=== PATIENT | male | born 1975 | race Caucasian/White ===

== ENCOUNTER 2016-08-28 22:21 | Observation (INO) | payer OTHER ==
[2016-08-28] MEDS ORDERED: NITROGLYCERIN OINT 1 INCH/GM PACKET TOPICAL STA (22:38)
[2016-08-28] MEDS ORDERED: ASPIRIN 81 MG PO STA (22:38)
--- NOTE | 2016-08-28 22:41 | ED ---
General Adult HPI - General Chief complaint: Chest Pain Stated complaint: Chest Pain Time Seen by Provider: 08/28/16 22:32 Source: patient, family, RN notes reviewed Mode of arrival: ambulatory Limitations: no limitations - History of Present Illness Initial comments: Patient is a pleasant 41-year-old male presenting to the emergency department complaining of chest discomfort. Patient has had difficulty with throat problems over the past several weeks. Patient has been on antibiotics 2 or 3 times. Patient has had some cough for the past few days. Today and yesterday patient has had discomfort in his chest. Discomfort is described as tightness without radiation. Patient is questionable if there may be some shortness of breath. No nausea. Patient has been somewhat sweaty however attributes this with her warmth outside. Patient is unclear if he has had fevers or not. No history of similar chest discomfort previously. - Related Data Home Medications Medication Instructions Recorded Confirmed Albuterol Inhaler [Ventolin Hfa 1 - 2 puff INHALATION RT-QID PRN 08/28/16 Inhaler] Omeprazole [PriLOSEC] 20 mg PO AC-BRKFST 08/28/16 08/28/16 Allergies Allergy/AdvReac Type Severity Reaction Status Date / Time No Known Allergies Allergy Verified 08/28/16 23:09 Review of Systems ROS Statement: Those systems with pertinent positive or pertinent negative responses have been documented in the HPI. ROS Other: All systems not noted in ROS Statement are negative. Constitutional: Denies: weight change Eyes: Denies: eye pain ENT: Reports: throat pain Respiratory: Reports: cough Cardiovascular: Reports: chest pain Endocrine: Denies: fatigue Gastrointestinal: Denies: abdominal pain Genitourinary: Denies: dysuria Musculoskeletal: Denies: back pain Skin: Denies: rash Neurological: Denies: headache Past Medical History Past Medical History: No Reported History Additional Past Medical History / Comment(s): pneumonia History of Any Multi-Drug Resistant Organisms: None Reported Past Surgical History: No Surgical Hx Reported Past Psychological History: No Psychological Hx Reported Smoking Status: Former smoker Past Alcohol Use History: None Reported Past Drug Use History: None Reported General Exam Limitations: no limitations General appearance: alert, in no apparent distress Head exam: Present: atraumatic Eye exam: Present: normal appearance, PERRL ENT exam: Present: normal oropharynx Neck exam: Present: normal inspection Respiratory exam: Present: normal lung sounds bilaterally Cardiovascular Exam: Present: regular rate, normal rhythm Expanded Peripheral pulses: 2+: Radial (R), Radial (L), Dorsalis Pedis (R), Dorsalis Pedis (L) GI/Abdominal exam: Present: soft. Absent: tenderness Extremities exam: Present: normal inspection. Absent: pedal edema, calf tenderness Back exam: Present: normal inspection Neurological exam: Present: alert Psychiatric exam: Present: normal affect, normal mood Skin exam: Present: normal color Course Vital Signs 08/28/16 08/28/16 22:22 23:25 Temperature 98.4 F Pulse Rate 78 79 Respiratory 18 18 Rate Blood Pressure 123/84 112/68 O2 Sat by Pulse 99 96 Oximetry EKG Findings - EKG Comments: EKG Findings:: Normal sinus rhythm 79. Normal intervals. Normal axis. Normal QRS. No acute ST change. Medical Decision Making - Medical Decision Making Patient reevaluated and improved. Patient symptom-free at this time following Nitropaste. Patient family updated on results and plan. Case discussed in detail with Dr. Martin, who will admit for Dr. Wang. - Lab Data Result diagrams: 08/28/16 22:30 08/28/16 22:30 Lab Results 08/28/16 08/28/16 08/28/16 Range/Units 22:30 22:30 22:30 WBC 10.9 H (3.8-10.6) k/uL RBC 5.28 (4.30-5.90) m/uL Hgb 15.2 (13.0-17.5) gm/dL Hct 43.7 (39.0-53.0) % MCV 82.7 (80.0-100.0) fL MCH 28.8 (25.0-35.0) pg MCHC 34.8 (31.0-37.0) g/dL RDW 14.0 (11.5-15.5) % Plt Count 361 (150-450) k/uL Neutrophils % 66 % Lymphocytes % 23 % Monocytes % 6 % Eosinophils % 3 % Basophils % 1 % Neutrophils # 7.2 (1.3-7.7) k/uL Lymphocytes # 2.5 (1.0-4.8) k/uL Monocytes # 0.6 (0-1.0) k/uL Eosinophils # 0.4 (0-0.7) k/uL Basophils # 0.1 (0-0.2) k/uL PT (9.0-12.0) sec INR (<1.2) APTT (22.0-30.0) sec D-Dimer (<0.60) mg/L FEU Sodium 141 (137-145) mmol/L Potassium 3.9 (3.5-5.1) mmol/L Chloride 104 (98-107) mmol/L Carbon Dioxide 24 (22-30) mmol/L Anion Gap 13 mmol/L BUN 13 (9-20) mg/dL Creatinine 0.82 (0.66-1.25) mg/dL Est GFR (MDRD) Af Amer >60 (>60 ml/min/1.73 sqM) Est GFR (MDRD) Non-Af >60 (>60 ml/min/1.73 sqM) Glucose 81 (74-99) mg/dL Calcium 9.3 (8.4-10.2) mg/dL Magnesium 2.2 (1.6-2.3) mg/dL Total Bilirubin 0.4 (0.2-1.3) mg/dL AST 51 (17-59) U/L ALT 139 H (21-72) U/L Alkaline Phosphatase 100 (38-126) U/L Total Creatine Kinase 73 (55-170) U/L CK-MB (CK-2) 0.6 (0.0-2.4) ng/mL CK-MB (CK-2) Rel Index 0.8 Troponin I <0.012 (0.000-0.034) ng/mL Total Protein 7.8 (6.3-8.2) g/dL Albumin 4.6 (3.5-5.0) g/dL 08/28/16 Range/Units 22:30 WBC (3.8-10.6) k/uL RBC (4.30-5.90) m/uL Hgb (13.0-17.5) gm/dL Hct (39.0-53.0) % MCV (80.0-100.0) fL MCH (25.0-35.0) pg MCHC (31.0-37.0) g/dL RDW (11.5-15.5) % Plt Count (150-450) k/uL Neutrophils % % Lymphocytes % % Monocytes % % Eosinophils % % Basophils % % Neutrophils # (1.3-7.7) k/uL Lymphocytes # (1.0-4.8) k/uL Monocytes # (0-1.0) k/uL Eosinophils # (0-0.7) k/uL Basophils # (0-0.2) k/uL PT 10.5 (9.0-12.0) sec INR 1.0 (<1.2) APTT 24.5 (22.0-30.0) sec D-Dimer 0.31 (<0.60) mg/L FEU Sodium (137-145) mmol/L Potassium (3.5-5.1) mmol/L Chloride (98-107) mmol/L Carbon Dioxide (22-30) mmol/L Anion Gap mmol/L BUN (9-20) mg/dL Creatinine (0.66-1.25) mg/dL Est GFR (MDRD) Af Amer (>60 ml/min/1.73 sqM) Est GFR (MDRD) Non-Af (>60 ml/min/1.73 sqM) Glucose (74-99) mg/dL Calcium (8.4-10.2) mg/dL Magnesium (1.6-2.3) mg/dL Total Bilirubin (0.2-1.3) mg/dL AST (17-59) U/L ALT (21-72) U/L Alkaline Phosphatase (38-126) U/L Total Creatine Kinase (55-170) U/L CK-MB (CK-2) (0.0-2.4) ng/mL CK-MB (CK-2) Rel Index Troponin I (0.000-0.034) ng/mL Total Protein (6.3-8.2) g/dL Albumin (3.5-5.0) g/dL - Radiology Data Radiology results: image reviewed (Chest x-ray shows no acute process) Critical Care Time Critical Care Time: Yes Total Critical Care Time: 31 Disposition Clinical Impression: Unstable angina pectoris Disposition: ADMITTED IP TO THIS [facility] Referrals: Arely Wang MD [Primary Care Provider] - 1-2 days Decision Time: 23:30
[2016-08-28 22:47] LABS: Basophils # (A) 0.1 k/uL (0-0.2); Basophils % (A) 1 %; CH 27.6; CHCM 33.6; Eosinophils # (A) 0.4 k/uL (0-0.7); Eosinophils % (A) 3 %; HCT 43.7 % (39.0-53.0); HDW 2.71; HGB 15.2 gm/dL (13.0-17.5); Luc # (Auto) 0.22; Luc % (Auto) 2; Lymphocytes # (A) 2.5 k/uL (1.0-4.8); Lymphocytes % (A) 23 %; MCH 28.8 pg (25.0-35.0); MCHC 34.8 g/dL (31.0-37.0); MCV 82.7 fL (80.0-100.0); Monocytes # (A) 0.6 k/uL (0-1.0); Monocytes % (A) 6 %; Neutrophils # (A) 7.2 k/uL (1.3-7.7); Neutrophils % (A) 66 %; RBC 5.28 m/uL (4.30-5.90); WBC 10.9 k/uL (3.8-10.6); WBC (Perox) 10.81
[2016-08-28 22:56] LABS: ALT 139 U/L (21-72); AST 51 U/L (17-59); Alkaline Phosphatase 100 U/L (38-126); Anion Gap 13 mmol/L; Blood Urea Nitrogen 13 mg/dL (9-20); Calcium 9.3 mg/dL (8.4-10.2); Carbon Dioxide 24 mmol/L (22-30); Chloride 104 mmol/L (98-107); Glucose 81 mg/dL (74-99); Magnesium 2.2 mg/dL (1.6-2.3); Non-African American GFR(MDRD) >60 (>60 ml/min/1.73 sqM); Potassium 3.9 mmol/L (3.5-5.1); Sodium 141 mmol/L (137-145); Total Bilirubin 0.4 mg/dL (0.2-1.3); Total Protein 7.8 g/dL (6.3-8.2)
[2016-08-28 23:02] LABS: Partial Thromboplastin Time 24.5 sec (22.0-30.0); Prothrombin Time 10.5 sec (9.0-12.0)
[2016-08-28 23:06] LABS: Creatine Kinase 73 U/L (55-170)
--- NOTE | 2016-08-28 23:10 | XR ---
EXAM: XR Chest, 2 Views CLINICAL HISTORY: Reason: Chest Pain TECHNIQUE: Frontal and lateral views of the chest. COMPARISON: None FINDINGS: Lungs: Unremarkable. No consolidation. Pleural space: Unremarkable. No pneumothorax. Heart: Unremarkable. No cardiomegaly. Mediastinum: Unremarkable. Bones/joints: No acute osseous abnormality. IMPRESSION: No acute cardiopulmonary process.
[2016-08-28 23:20] LABS: Creatine Kinase MB 0.6 ng/mL (0.0-2.4); Troponin I <0.012 ng/mL (0.000-0.034)
[2016-08-28] MEDS ORDERED: NITROGLYCERIN SL TABS 0.4 MG TAB SUBLINGUAL PRN (23:31)
[2016-08-28] MEDS ORDERED: HEPARIN SODIUM,PORCINE 5,000 UNIT/ML 1 ML VIAL IV PRN (23:31)
[2016-08-28] MEDS ORDERED: HEPARIN SODIUM,PORCINE 5,000 UNIT/ML 1 ML VIAL IV ONE (23:31)
[2016-08-28] MEDS ORDERED: HEPARIN SODIUM,PORCINE/D5W PMX 25,000 UNIT in DEXTROSE/WATER 1 500ML.BAG IV SCH (23:45)
[2016-08-29 00:31] VITALS: BMI 34.0
[2016-08-29] MEDS: NITROGLYCERIN OINT 1 INCH/GM PACKET TOPICAL SCH ×3 (00:47→13:52)
[2016-08-29 05:46] LABS: Mean Platelet Volume 7.3
[2016-08-29 05:55] LABS: Cholesterol 197 mg/dL (<200); HDL Cholesterol 44 mg/dL (40-60)
[2016-08-29 06:04] LABS: Creatine Kinase 58 U/L (55-170)
[2016-08-29 06:17] LABS: Creatine Kinase MB 0.5 ng/mL (0.0-2.4); Troponin I <0.012 ng/mL (0.000-0.034)
[2016-08-29 08:10] VITALS: RESP 16
[2016-08-29] MEDS ORDERED: ACETAMINOPHEN TAB 325 MG TAB PO PRN (08:22)
[2016-08-29] MEDS ORDERED: ASPIRIN 325 MG TAB PO SCH (09:00)
--- NOTE | 2016-08-29 11:25 | CONS ---
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 The quality of his discomfort seems very atypical, occurring in short of a random fashion. [place] and then started feeling some uncomfortable sensation in the chest and also had some shortness of breath as well. About two weeks ago, he had some URI type symptoms, had a prolonged infection, took antibiotics and steroids. He had similar symptoms but in addition, he also had some chest tightness, tingling feeling in his arm and then came into the hospital. Two sets of troponins are normal. He is resting comfortable. Pain seems atypical. He does not have any other major risk factors. ( ). MTDD
--- NOTE | 2016-08-29 11:58 | ECHOF ---
Referral Reason:cp MEASUREMENTS -------- HEIGHT: 177.8 cm WEIGHT: 124.3 kg BP: 154/42 WallScoring: string WallScoring: string WallScoring: string FINDINGS -------- Utilizing the standard Randall protocol the patient was exercised for 10 minutes, 0 seconds, achieving a maximum heart rate of 155 , which is 87 % of predicted maximal heart rate. There was physiologic heart rate and blood pressure response to exercise. Max Heart Rate: 155 % of Max Predicted Heart Rate: 87 Rest Heart Rate: 73 Rest BP: 154/42 Max BP: 196/61 Mets Achieved: 11.7 The test was stopped because of fatigue. This level of exercise represents an average exercise tolerance for age. Sinus rhythm. In response to stress, the ECG showed no ST-T wave changes (see exercise report for details). In response to stress, the ECG showed no ST-T wave changes (see exercise report for details). There were normal blood pressure and heart rate responses to stress. LV size, wall thickness and systolic function are normal, with an EF of 60%. Echo images were acquired at peak stress which demonstrated appropriate augmentation of all left ventricular segments with slight decrease in cavity size. CONCLUSIONS -------- 1. The test was stopped because of fatigue. 2. This level of exercise represents an average exercise tolerance for age. 3. In response to stress, the ECG showed no ST-T wave changes (see exercise report for details). 4. No 2D echocardiographic evidence of inducible ischemia to achieved workload. COMMUNITY ENGAGEMENT REPRESENTATIVE: Eda Garcia RDCS
--- NOTE | 2016-08-29 12:01 | ECHOF ---
Referral Reason:cp MEASUREMENTS -------- HEIGHT: 177.8 cm WEIGHT: 127.0 kg BP: 154/42 RVIDd: 3.0 cm (< 3.3) IVSd: 1.1 cm (0.6 - 1.1) LVIDd: 4.4 cm (3.9 - 5.3) LVPWd: 1.2 cm (0.6 - 1.1) IVSs: 1.7 cm LVIDs: 3.1 cm LVPWs: 1.7 cm LA Diam: 3.6 cm (2.7 - 3.8) LAESV Index (A-L): 17.69 ml/m Ao Diam: 3.8 cm (2.0 - 3.7) AV Cusp: 2.7 cm (1.5 - 2.6) MV EXCURSION: 16.312 mm (> 18.000) MV EF SLOPE: 48 mm/s (70 - 150) EPSS: 0.3 cm MV E Mk: 0.80 m/s MV DecT: 239 ms MV A Mk: 0.61 m/s MV E/A Ratio: 1.31 FINDINGS -------- Sinus rhythm. This was a technically good study. The left ventricular size is normal. There is borderline concentric left ventricular hypertrophy. Overall left ventricular systolic function is normal with, an EF between 55 - 60 %. The right ventricle is normal in size. Normal LA size by volume 22+/-6 ml/m2. The right atrium is normal in size. The aortic valve is trileaflet and appears structurally normal. The mitral valve is normal. The tricuspid valve appears structurally normal. Trace/mild (physiologic) pulmonic regurgitation. The aortic root is mildy dilated. Normal inferior vena cava with normal inspiratory collapse consistent with estimated right atrial pressure of 5 mmHg. There is no pericardial effusion. CONCLUSIONS -------- 1. Sinus rhythm. 2. The aortic root is mildy dilated. 3. There is no pericardial effusion. 4. This was a technically good study. 5. There is borderline concentric left ventricular hypertrophy. 6. Overall left ventricular systolic function is normal with, an EF between 55 - 60 %. 7. Normal LA size by volume 22+/-6 ml/m2. 8. The aortic valve is trileaflet and appears structurally normal. 9. The mitral valve is normal. 10. The tricuspid valve appears structurally normal. 11. Trace/mild (physiologic) pulmonic regurgitation. SAFETY AND SECURITY MANAGER: Eda Garcia RDCS
[2016-08-29 12:22] LABS: Creatine Kinase 59 U/L (55-170)
[2016-08-29 12:29] VITALS: BP 133/85; PULSE 87; TEMP 98.4
[2016-08-29 12:34] LABS: Creatine Kinase MB 0.5 ng/mL (0.0-2.4); Troponin I <0.012 ng/mL (0.000-0.034)
--- NOTE | 2016-08-29 13:29 | P.DS ---
Providers Date of admission: 08/28/16 23:31 Attending physician: Linda Martin Consults: 08/28/16 23:31 Consult Physician Urgent Consulting Provider: Arley Roberson Consult Reason/Comments: ua Do you want consulting provider notified?: Yes Primary care physician: Arely Wang Hospital Course: Refer to [facility] Plan - Discharge Summary New Discharge Prescriptions: No Action Omeprazole [PriLOSEC] 20 mg PO AC-BRKFST Albuterol Inhaler [Ventolin Hfa Inhaler] 1 - 2 puff INHALATION RT-QID PRN PRN Reason: Shortness Of Breath Discharge Medication List Albuterol Inhaler [Ventolin Hfa Inhaler] 1 - 2 puff INHALATION RT-QID PRN [History] Omeprazole [PriLOSEC] 20 mg PO AC-BRKFST 08/28/16 [History] Follow up Appointment(s)/Referral(s): Arely Wang MD [Primary Care Provider] - 3 Days Discharge Disposition: HOME SELF-CARE
--- NOTE | 2016-08-29 13:29 | P.HPIM ---
History of Present Illness Patient is a pleasant 41-year-old male presenting to the emergency department complaining of chest discomfort episodic, retrosternal, non radiating, non pleuritic not associated with food, moderate, denied cough. Patient has been on antibiotics 2 or 3 times. Today and yesterday patient has had discomfort in his chest. Discomfort is described as tightness without radiation. Patient is questionable if there may be some shortness of breath. No nausea. Patient has been somewhat sweaty however attributes this with her warmth outside. Patient is unclear if he has had fevers or not. No history of similar chest discomfort previously. Patient had stress test which was negative. Chest pain completely resolved now. Review of Systems REVIEW OF SYSTEMS: CONSTITUTIONAL: No fever, no malaise, no fatigue. HEENT: No recent visual problems or hearing problems. Denied any sore throat. CARDIOVASCULAR: No orthopnea, PND, no palpitations, no syncope. PULMONARY: No shortness of breath, no cough, no hemoptysis. GASTROINTESTINAL: No diarrhea, no nausea, no vomiting, no abdominal pain. Normoactive bowel sounds. NEUROLOGICAL: No headaches, no weakness, no numbness. HEMATOLOGICAL: Denies any bleeding or petechiae. GENITOURINARY: Denies any burning micturition, frequency, or urgency. MUSCULOSKELETAL/RHEUMATOLOGICAL: Denies any joint pain, swelling, or any muscle pain. ENDOCRINE: Denies any polyuria or polydipsia. The rest of the 14-point review of systems is negative. Past Medical History Past Medical History: No Reported History, GERD/Reflux, Hyperlipidemia, Osteoarthritis (OA), Sleep Apnea/CPAP/BIPAP Additional Past Medical History / Comment(s): pneumonia, sleep apnea-cpap History of Any Multi-Drug Resistant Organisms: None Reported Past Surgical History: No Surgical Hx Reported Additional Past Surgical History / Comment(s): Broken jaw-4 [place] accident, vasectomy Past Anesthesia/Blood Transfusion Reactions: No Reported Reaction, Motion Sickness Past Psychological History: No Psychological Hx Reported Smoking Status: Former smoker Past Alcohol Use History: None Reported Past Drug Use History: None Reported - Past Family History Father Family Medical History: Osteoarthritis (OA) Mother Family Medical History: Cancer, Thyroid Disorder Additional Family Medical History / Comment(s): thyroid CA-removed Sister(s) Family Medical History: Diabetes Mellitus Additional Family Medical History / Comment(s): Borderline DM Medications and Allergies Home Medications Medication Instructions Recorded Confirmed Type Albuterol Inhaler [Ventolin Hfa 1 - 2 puff INHALATION RT-QID PRN 08/28/16 History Inhaler] Omeprazole [PriLOSEC] 20 mg PO AC-BRKFST 08/28/16 08/29/16 History Allergies Allergy/AdvReac Type Severity Reaction Status Date / Time No Known Allergies Allergy Verified 08/29/16 00:33 Physical Exam Vitals: Vital Signs Temp Pulse Pulse Pulse Resp BP BP 08/29/16 12:00 98.4 F 87 16 133/85 08/29/16 08:00 97.9 F 74 16 116/78 08/29/16 04:00 97.9 F 60 18 103/58 08/29/16 00:00 97.7 F 71 18 108/68 08/28/16 23:25 79 18 112/68 08/28/16 22:22 98.4 F 78 18 123/84 Pulse Ox 08/29/16 12:00 95 08/29/16 08:00 96 08/29/16 04:00 97 08/29/16 00:00 99 08/28/16 23:25 96 08/28/16 22:22 99 Intake and Output 08/28/16 08/29/16 08/29/16 22:59 06:59 14:59 Intake Total 290 Balance 290 Intake: IV 30 0.9 @ 10ml/hr 30 Intake, IV Titration 160 Amount Heparin Sodium,Porcine/ 160 D5w Pmx 25,000 unit In Dextrose/Water 1 500ml. bag @ 7.9 UNITS/KG/HR 20. 06 mls/hr IV .Q24H [facility] Rx #:[id number] Oral 100 Other: Voiding Method Toilet Toilet # Voids 2 Weight 127.006 kg 124.6 kg PHYSICAL EXAMINATION: GENERAL: The patient is alert and oriented x3, not in any acute distress. Well developed, well nourished. HEENT: Pupils are round and equally reacting to light. EOMI. No scleral icterus. No conjunctival pallor. Normocephalic, atraumatic. No pharyngeal erythema. No thyromegaly. CARDIOVASCULAR: S1 and S2 present. No murmurs, rubs, or gallops. PULMONARY: Chest is clear to auscultation, no wheezing or crackles. ABDOMEN: Soft, nontender, nondistended, normoactive bowel sounds. No palpable organomegaly. MUSCULOSKELETAL: No joint swelling or deformity. EXTREMITIES: No cyanosis, clubbing, or pedal edema. NEUROLOGICAL: Gross neurological examination did not reveal any focal deficits. SKIN: No rashes. Results CBC & Chem 7: 08/29/16 05:26 08/28/16 22:30 Labs: Abnormal Lab Results - Last 24 Hours (Table) 08/28/16 08/28/16 08/29/16 Range/Units 22:30 22:30 05:26 WBC 10.9 H (3.8-10.6) k/uL ALT 139 H (21-72) U/L Triglycerides 293 H (<150) mg/dL Thrombosis Risk Factor Assmnt - Choose All That Apply Each Factor Represents 1 point: Age 41-60 years Thrombosis Risk Factor Assessment Total Risk Factor Score: 1 Thrombosis Risk Factor Assessment Level: Low Risk Assessment and Plan Plan: #1 chest pain: Patient was admitted to rule out unstable angina and acute myocardial infarction. Patient underwent stress test which was negative patient has pain is probably musculoskeletal patient will be discharged today in follow-up with Dr. Arely Wang as an outpatient. #2 gastroesophageal reflux disease: Patient will continue his omeprazole #3 patient appears to have had history of COPD for which he uses albuterol which she can continue. I do not believe patient has bronchitis #4 obesity: Counseling was provided
--- NOTE | 2016-08-29 15:24 | EST ---
Referral Reason:cp MEASUREMENTS -------- HEIGHT: 177.8 cm WEIGHT: 124.3 kg BP: 154/42 FINDINGS -------- Utilizing the standard Randall protocol the patient was exercised for 10 minutes, 0 seconds, achieving a maximum heart rate of 155 , which is 87 % of predicted maximal heart rate. There was physiologic heart rate and blood pressure response to exercise. Max Heart Rate: 155 % of Max Predicted Heart Rate: 87 Rest Heart Rate: 73 Rest BP: 154/42 Max BP: 196/61 Mets Achieved: 11.7 The test was stopped because of fatigue. This level of exercise represents an average exercise tolerance for age. Sinus rhythm. In response to stress, the ECG showed no ST-T wave changes (see exercise report for details). In response to stress, the ECG showed no ST-T wave changes (see exercise report for details). There were normal blood pressure and heart rate responses to stress. LV size, wall thickness and systolic function are normal, with an EF of 60%. Echo images were acquired at peak stress which demonstrated appropriate augmentation of all left ventricular segments with slight decrease in cavity size. CONCLUSIONS -------- 1. The test was stopped because of fatigue. 2. This level of exercise represents an average exercise tolerance for age. 3. In response to stress, the ECG showed no ST-T wave changes (see exercise report for details). 4. No 2D echocardiographic evidence of inducible ischemia to achieved workload. ASSISTANT PROSECUTING ATTORNEY: Eda Garcia SHERRY MTDD
== END 2016-08-29 13:50 | disposition home or self-care (01) ==
LOC: EC 22:21 → 3OBS 23:31
PROVIDERS: ADMIT Internal Medicine; ATTEND Internal Medicine
DX: R07.89 Other chest pain (principal); R20.2 Paresthesia of skin; K21.9 Gastro-esophageal reflux disease without esophagitis; E66.9 Obesity, unspecified; G47.30 Sleep apnea, unspecified; Z99.89 Dependence on other enabling machines and devices; Z79.899 Other long term (current) drug therapy; Z87.891 Personal history of nicotine dependence; Z80.8 Family history of malignant neoplasm of other organs or systems; Z83.3 Family history of diabetes mellitus; R06.02 Shortness of breath
CPT/HCPCS: 93005 ×2; 96365; 96366; 96376; 99291; 36415; 93017; 93306; 93350; 85379; 80061; 80053; 82550 ×2; 82553 ×2; 83735; 84484 ×2; 85025; 85049; 85610; 85730 ×2; 71020; G0378 ×2; J1644 ×2

== ENCOUNTER 2017-01-05 20:20 | Emergency (ER) | payer OTHER ==
[2017-01-05 20:24] VITALS: RESP 18
[2017-01-05] MEDS ORDERED: KETOROLAC 30 MG/ML 1 ML VIAL IVP STA (20:50)
[2017-01-05] MEDS ORDERED: PANTOPRAZOLE 40 MG/10 ML VIAL IVP STA (20:50)
[2017-01-05] MEDS ORDERED: SODIUM CHLORIDE 0.9% 1,000 ML IV STA (20:50)
[2017-01-05] MEDS ORDERED: ONDANSETRON 4 MG/2 ML VIAL IVP STA (20:50)
[2017-01-05] MEDS ORDERED: HYDROmorphone 0.5 MG/0.5 ML SYRINGE IVP STA (20:50)
[2017-01-05] MEDS ORDERED: MAG HYDROX/AL HYDROX/SIMETH 30 ML, HYOSCYAMINE ELIXIR 10 ML, CIMETIDINE HCL 300 MG, LID... PO STA ×4 (20:51)
--- NOTE | 2017-01-05 21:22 | XR ---
EXAMINATION TYPE: XR KUB DATE OF EXAM: 01/05/2017 COMPARISON: NONE HISTORY: Vomiting TECHNIQUE: 2 views FINDINGS: There is no sign of intestinal obstruction or pneumoperitoneum. Fecal pattern is normal. Cali wel gas pattern is normal. Lung bases are clear. There are no pathologic calcifications over the kidn eys. IMPRESSION: Nonacute abdomen.
[2017-01-05 21:27] LABS: Basophils # (A) 0.1 k/uL (0-0.2); Basophils % (A) 0 %; CH 27.9; CHCM 33.5; Eosinophils # (A) 0.3 k/uL (0-0.7); Eosinophils % (A) 2 %; HCT 46.4 % (39.0-53.0); HDW 2.68; HGB 15.5 gm/dL (13.0-17.5); Luc # (Auto) 0.22; Luc % (Auto) 2; Lymphocytes # (A) 1.4 k/uL (1.0-4.8); Lymphocytes % (A) 10 %; MCH 27.9 pg (25.0-35.0); MCHC 33.4 g/dL (31.0-37.0); MCV 83.6 fL (80.0-100.0); Mean Platelet Volume 7.4; Monocytes # (A) 0.6 k/uL (0-1.0); Monocytes % (A) 4 %; Neutrophils % (A) 82 %; RBC 5.55 m/uL (4.30-5.90); RDW 13.8 % (11.5-15.5); WBC 14.6 k/uL (3.8-10.6); WBC (Perox) 13.67
[2017-01-05 21:33] LABS: ALT 50 U/L (21-72); AST 34 U/L (17-59); Alkaline Phosphatase 108 U/L (38-126); Amylase 88 U/L (30-110); Anion Gap 12 mmol/L; Blood Urea Nitrogen 13 mg/dL (9-20); Calcium 9.4 mg/dL (8.4-10.2); Carbon Dioxide 21 mmol/L (22-30); Chloride 106 mmol/L (98-107); Glucose 108 mg/dL (74-99); Non-African American GFR(MDRD) >60 (>60 ml/min/1.73 sqM); Potassium 4.6 mmol/L (3.5-5.1); Sodium 139 mmol/L (137-145); Total Bilirubin 0.6 mg/dL (0.2-1.3); Total Protein 8.4 g/dL (6.3-8.2)
[2017-01-05 21:52] LABS: Amorphous Sediment,Urine Rare /hpf; Appearance,Urine Cloudy (Clear); Bilirubin,Urine Negative (Negative); Glucose,Urine (UA) Negative (Negative); Granular Casts,Urine 29 /lpf (0); Ketones,Urine Negative (Negative); Leukocyte Esterase,Urine Negative (Negative); Mucus,Urine Few /hpf; Nitrite,Urine Negative (Negative); PH, Urine 5.5 (5.0-8.0); Particle Count 7429; Protein,Urine Trace (Negative); RBC,Urine <1 /hpf (0-5); Specific Gravity,Urine 1.023 (1.001-1.035); Squamous Epithelial Cell,Urine <1 /hpf (0-4); UA Billing (MACRO vs. MICRO) MICRO; Urobilinogen,Urine <2.0 mg/dL (<2.0)
[2017-01-05] MEDS ORDERED: RX INFO: IV CONTRAST WAS GIVEN 1 EACH MISC MISCELLANE PRN (22:08)
--- NOTE | 2017-01-05 23:07 | CT ---
EXAMINATION TYPE: CT abdomen pelvis w con DATE OF EXAM: 01/05/2017 COMPARISON: NONE HISTORY: No prior, vomiting, epigastric pain, and pain under right sided ribs, elevated WBC CT DLP: DLP:[id number] mGycm Automated exposure control for dose reduction was used. TECHNIQUE: Helical acquisition of images was performed from the lung bases through the pelvis. CONTRAST: Performed without Oral Contrast and with IV Contrast, patient injected with 100 mL of Omnipaque 300. FINDINGS: There is interstitial density at the lung bases with patchy atelectasis. There is no pleural effusion . Heart appears enlarged. There is no pericardial effusion. Liver spleen pancreas gallbladder appear normal. Bile ducts are not dilated. There is no adrenal mass . Kidneys show satisfactory contrast opacification. There is no hydronephrosis. There is no retroperi toneal adenopathy. There is no ascites. Appendix appears normal. I see no intestinal wall thickening. There are no dilated loops. Bladder distends smoothly. There is no sign of a pelvic mass. There is s pondylolysis of L5 with a minimal first-degree L5-S1 spondylolisthesis. There is probably a 1 cm sherman ical cyst on the lateral left kidney. IMPRESSION: NORMAL APPENDIX. NO SIGN OF ACUTE ABDOMEN AND PELVIS. SPONDYLOLYSIS OF L5. MILD PATCHY INTERSTITIAL I NFILTRATE AND ATELECTASIS AT THE POSTERIOR LUNG BASES.
[2017-01-05 23:16] VITALS: BP 114/66; PULSE 72; TEMP 98.1
--- NOTE | 2017-01-05 23:59 | ED ---
Abdominal Pain HPI - General Chief Complaint: Abdominal Pain Stated Complaint: Vomiting Time Seen by Provider: 01/05/17 20:42 Source: patient, RN notes reviewed, old records reviewed Mode of arrival: ambulatory Limitations: no limitations - History of Present Illness Initial Comments: 41 year old male presents to ED with CC of vomiting and epigastric abdominal pain for one week. Patient has had diagnosis with GERD, he has been taking omeprazole and zantac. Patient reports that he has not been eating acidic foods , or anyother triggers. Patient relates that he does not take motrin or drink alcohol. Denies any fever, chills, diarrhea, chest pain, shorntess of breath. Patient arrives [facility], reports 4 episodes of vomiting today. - Related Data Home Medications Medication Instructions Recorded Confirmed Omeprazole [PriLOSEC] 20 mg PO BID 08/28/16 01/05/17 Bismuth Subsalicylate 262 mg PO TID PRN 01/05/17 01/05/17 [Pepto-Bismol] Calcium Carbonate [Tums] 500 mg PO TID PRN 01/05/17 01/05/17 Citalopram Hydrobromide [CeleXA] 40 mg PO DAILY 01/05/17 01/05/17 Ranitidine HCl [Zantac] 150 mg PO BID 01/05/17 01/05/17 Previous Rx's Medication Instructions Recorded Ondansetron Odt [Zofran Odt] 4 mg PO Q8HR PRN #12 tab 01/05/17 Sucralfate [Carafate] 1 gm PO BID #20 tablet 01/05/17 Allergies Allergy/AdvReac Type Severity Reaction Status Date / Time No Known Allergies Allergy Verified 01/05/17 20:29 Review of Systems ROS Statement: Those systems with pertinent positive or pertinent negative responses have been documented in the HPI. ROS Other: All systems not noted in ROS Statement are negative. Past Medical History Past Medical History: No Reported History, GERD/Reflux, Hyperlipidemia, Osteoarthritis (OA), Sleep Apnea/CPAP/BIPAP Additional Past Medical History / Comment(s): pneumonia, sleep apnea-cpap History of Any Multi-Drug Resistant Organisms: None Reported Past Surgical History: No Surgical Hx Reported Additional Past Surgical History / Comment(s): Broken jaw-4 [place] accident, vasectomy Past Anesthesia/Blood Transfusion Reactions: No Reported Reaction, Motion Sickness Past Psychological History: No Psychological Hx Reported Smoking Status: Former smoker Past Alcohol Use History: None Reported Past Drug Use History: None Reported - Past Family History Father Family Medical History: Osteoarthritis (OA) Mother Family Medical History: Cancer, Thyroid Disorder Additional Family Medical History / Comment(s): thyroid CA-removed Sister(s) Family Medical History: Diabetes Mellitus Additional Family Medical History / Comment(s): Borderline DM General Exam - General Exam Comments Initial Comments: Patient is a 41 year old male, no distress. Limitations: no limitations General appearance: alert, in no apparent distress Head exam: Present: atraumatic, normocephalic, normal inspection Eye exam: Present: normal appearance, PERRL, EOMI. Absent: scleral icterus, conjunctival injection, periorbital swelling ENT exam: Present: normal exam, mucous membranes moist Neck exam: Present: normal inspection. Absent: tenderness, meningismus, lymphadenopathy Respiratory exam: Present: normal lung sounds bilaterally. Absent: respiratory distress, wheezes, rales, rhonchi, stridor Cardiovascular Exam: Present: regular rate, normal rhythm, normal heart sounds. Absent: systolic murmur, diastolic murmur, rubs, gallop, clicks GI/Abdominal exam: Present: soft, tenderness (epigastric tenderness), normal bowel sounds. Absent: distended, guarding, rebound, rigid Extremities exam: Present: normal inspection, full ROM, normal capillary refill. Absent: tenderness, pedal edema, joint swelling, calf tenderness Back exam: Present: normal inspection Neurological exam: Present: alert, oriented X3, CN II-XII intact Course Vital Signs 01/05/17 01/05/17 01/05/17 20:20 21:41 23:14 Temperature 98.7 F 98.1 F Pulse Rate 63 65 72 Respiratory 18 18 18 Rate Blood Pressure 138/88 135/86 114/66 O2 Sat by Pulse 98 97 98 Oximetry Medical Decision Making - Medical Decision Making Where is your old me a [facility] emergency department with one week of family. He has gastric reflux disease. He's currently taking a map resolve and ranitidine. Patient arrives with multiple upset about meeting today. Your ports that he cannot take the pain and vomiting anymore.Patient was given a cocktail, IV fluids, pain medication. Patient was reevaluated in pain. He somewhat tender. Patient CT is negative for any acute process. AT this time I will discharge the patient with GI follow up, possible scope. Discussed starting carafate as well, and giving nausea medication. Discussed return parameters and follow up with PCP. - Lab Data Result diagrams: 01/05/17 21:13 01/05/17 21:13 Lab Results 01/05/17 01/05/17 01/05/17 Range/Units 21:13 21:13 21:40 WBC 14.6 H (3.8-10.6) k/uL RBC 5.55 (4.30-5.90) m/uL Hgb 15.5 (13.0-17.5) gm/dL Hct 46.4 (39.0-53.0) % MCV 83.6 (80.0-100.0) fL MCH 27.9 (25.0-35.0) pg MCHC 33.4 (31.0-37.0) g/dL RDW 13.8 (11.5-15.5) % Plt Count 352 (150-450) k/uL Neutrophils % 82 % Lymphocytes % 10 % Monocytes % 4 % Eosinophils % 2 % Basophils % 0 % Neutrophils # 12.0 H (1.3-7.7) k/uL Lymphocytes # 1.4 (1.0-4.8) k/uL Monocytes # 0.6 (0-1.0) k/uL Eosinophils # 0.3 (0-0.7) k/uL Basophils # 0.1 (0-0.2) k/uL Sodium 139 (137-145) mmol/L Potassium 4.6 (3.5-5.1) mmol/L Chloride 106 (98-107) mmol/L Carbon Dioxide 21 L (22-30) mmol/L Anion Gap 12 mmol/L BUN 13 (9-20) mg/dL Creatinine 0.80 (0.66-1.25) mg/dL Est GFR (MDRD) Af Amer >60 (>60 ml/min/1.73 sqM) Est GFR (MDRD) Non-Af >60 (>60 ml/min/1.73 sqM) Glucose 108 H (74-99) mg/dL Calcium 9.4 (8.4-10.2) mg/dL Total Bilirubin 0.6 (0.2-1.3) mg/dL AST 34 (17-59) U/L ALT 50 (21-72) U/L Alkaline Phosphatase 108 (38-126) U/L Total Protein 8.4 H (6.3-8.2) g/dL Albumin 4.6 (3.5-5.0) g/dL Amylase 88 (30-110) U/L Lipase 94 (23-300) U/L Urine Color Yellow Urine Appearance Cloudy (Clear) Urine pH 5.5 (5.0-8.0) Ur Specific [place] 1.023 (1.001-1.035) Urine Protein Trace H (Negative) Urine Glucose (UA) Negative (Negative) Urine Ketones Negative (Negative) Urine Blood Negative (Negative) Urine Nitrite Negative (Negative) Urine Bilirubin Negative (Negative) Urine Urobilinogen <2.0 (<2.0) mg/dL Ur Leukocyte Esterase Negative (Negative) Urine RBC <1 (0-5) /hpf Ur Squamous Epith Cells <1 (0-4) /hpf Amorphous Sediment Rare H (None) /hpf Granular Casts 29 (0) /lpf Urine Mucus Few H (None) /hpf - Radiology Data Radiology results: report reviewed CT abdomen and pelvis is negative for acute process. Disposition Clinical Impression: Gastritis Disposition: HOME SELF-CARE Condition: Good Instructions: Gastritis (ED) Additional Instructions: Patient advised to follow-up with primary care provider, take the medicine as prescribed. Return to emergency department if any alarming signs or symptoms occur. Prescriptions: Ondansetron Odt [Zofran Odt] 4 mg PO Q8HR PRN #12 tab PRN Reason: Nausea Sucralfate [Carafate] 1 gm PO BID #20 tablet Referrals: Arely Wang MD [Primary Care Provider] - 1-2 days Time of Disposition: 23:56
== END 2017-01-06 00:22 | disposition home or self-care (01) ==
LOC: EC 20:20
DX: K29.70 Gastritis, unspecified, without bleeding (principal); K21.9 Gastro-esophageal reflux disease without esophagitis; Z87.891 Personal history of nicotine dependence; Z79.899 Other long term (current) drug therapy
CPT/HCPCS: 36415; 80053; 82150; 83690; 85025; 81001; 74000; 74177; 99285; 96374; 96375 ×3; 96361 ×2; J2405; J1885; Q9967; C9113; J1170